=== PATIENT | male | born 1965 | race Caucasian/White ===

== ENCOUNTER 2020-11-26 07:10 | Day surgery (SDC) | payer OTHER, SELFPAY ==
[2020-11-22 15:19] VITALS: BMI 30.1
--- NOTE | 2020-11-25 09:28 | P.CONAN_ITS ---
Documented by User: Valencia Jones 11/25/20 09:29 HPI - Anesthesia Eval Consult details Narrative: 55yo M for Upper Endoscopy and Colonoscopy [facility] Past Medical History Medical History GERD (gastroesophageal reflux disease) Hyperlipidemia IBS (irritable bowel syndrome) Surgical History Surgical History Hx of cervical discectomy Hx of colonoscopy Social History Social History Advance Directives: No Advance Directives Information Provided: No Advance Directives on File: No Recently lost weight without trying: No Meds Allergies Allergy/AdvReac Type Severity Reaction Status Date / Time bee pollen [bee stings] Allergy Unknown Verified 11/22/20 15:13 Home Medications Medication Instructions Recorded Confirmed Last Taken Type cholecalciferol (vitamin D3) 25 mcg PO DAILY 11/22/20 11/22/20 Unknown History [Vitamin D3] coenzyme Q10 [CoQ-10] 200 mg PO DAILY 11/22/20 11/22/20 Unknown History dicyclomine 1 - 2 cap PO Q6H PRN 11/22/20 11/22/20 Unknown History famotidine 1 tab PO DAILY 11/22/20 11/22/20 Unknown History egzarqxatgot-uada-gwpwm acid 1 tab PO DAILY 11/22/20 11/22/20 Unknown History [Centrum] omeprazole 1 cap PO DAILY 11/22/20 11/22/20 Unknown History simvastatin 1 tab PO BEDTIME 11/22/20 11/22/20 Unknown History Exam Exam Date and Time: November 25, 2020 0928 Height,Weight and Vital Signs: Height 5 ft 8 in Weight 89.811 kg Assessment and Plan Assessment Anesthesia Assessment: Chart Reviewed Documented by User: Tiny Leyva 11/26/20 08:15 [facility] Past Medical History Medical History GERD (gastroesophageal reflux disease) Hyperlipidemia IBS (irritable bowel syndrome) Surgical History Surgical History Hx of cervical discectomy Hx of colonoscopy Social History Social History Advance Directives: No Advance Directives Information Provided: No Advance Directives on File: No Recently lost weight without trying: No Meds Allergies Allergy/AdvReac Type Severity Reaction Status Date / Time bee pollen [bee stings] Allergy Unknown Verified 11/22/20 15:13 Home Medications Medication Instructions Recorded Confirmed Last Taken Type cholecalciferol (vitamin D3) 25 mcg PO DAILY 11/22/20 11/22/20 Unknown History [Vitamin D3] coenzyme Q10 [CoQ-10] 200 mg PO DAILY 11/22/20 11/22/20 Unknown History dicyclomine 1 - 2 cap PO Q6H PRN 11/22/20 11/22/20 Unknown History famotidine 1 tab PO DAILY 11/22/20 11/22/20 Unknown History vmzzzurfivep-zgmy-tugug acid 1 tab PO DAILY 11/22/20 11/22/20 Unknown History [Centrum] omeprazole 1 cap PO DAILY 11/22/20 11/22/20 Unknown History simvastatin 1 tab PO BEDTIME 11/22/20 11/22/20 Unknown History Exam Airway Mallampati Class: III (Small mouth, puentes) TM Dist: >3cm Neck ROM: Full Loose/Missing/Broken Teeth: No Heart: RRR Lungs: CTA Assessment and Plan Assessment Anesthesia Assessment: Anesthesia Plan Discussed and Chart Reviewed Final Anesthetic Review NPO: Yes ASA Class: II Final Preanesthetic Review: Meds/Allgs Chart Reviewed, Consent Obtained/Reviewed and Anes Risks/Benef Reviewed Patient Risk: Low Procedure Risk: Intermediate Anesthetic Plan Anesthetic Plan: MAC: Disposition: Standard PACU
[2020-11-26 07:59] VITALS: BP 130/81; PULSE 70; RESP 16; TEMP 36.4; O2SAT 98
[2020-11-26] MEDS: Lactated Ringers 1,000 ML 50 ML IV (08:15)
[2020-11-26 09:50] VITALS: BP 114/77; PULSE 73; RESP 16; TEMP 36.1; O2SAT 98
--- NOTE | 2020-11-26 09:56 | PM.OP ---
Brief Operative Note Date of Service: 11/26/20 Pre-op diagnosis: GERD, Screening Post-op diagnosis: other (Gastritis, Duodenitis, Hiatal hernia, R/O Izaguirre's, R/O Colitis, Diverticulosis) Procedure: EGD with biopsies, Colonoscopy to the cecum and TI with biopsies Surgeon: Tim Oseguera Anesthesia: MAC Estimated blood loss (mL): 4.0 Pathology: other (A. Gastric antrum B. Esophagus 39-40cm C. Colon at 20cm D. Rectum) Condition: stable Disposition: PACU
[2020-11-26 10:05] VITALS: BP 116/82; PULSE 78; RESP 16; O2SAT 99
--- NOTE | 2020-11-26 10:22 | OP_ITS ---
SURGEON: Tim Oseguera MD INDICATIONS: The patient presents for evaluation of gastroesophageal reflux, personal history of tubular adenoma of the colon, colorectal cancer screening, and irregular bowel movements. Full consent has been obtained from him for this, including risks of bleeding and perforation. PREOPERATIVE DIAGNOSIS: POSTOPERATIVE DIAGNOSIS: PROCEDURE PERFORMED: Esophagogastroduodenoscopy with biopsies, and colonoscopy to the cecum and terminal ileum with biopsies. ESTIMATED BLOOD LOSS: COMPLICATIONS: ANESTHESIA: Monitored anesthesia care. ASSISTANTS: SPECIMENS: PREOPERATIVE DIAGNOSES: Gastroesophageal reflux, colorectal cancer screening, personal history of tubular adenoma of the colon, irregular bowel movements. POSTOPERATIVE DIAGNOSES: Gastroesophageal reflux, colorectal cancer screening, personal history of tubular adenoma of the colon, irregular bowel movements, hiatal hernia, gastritis, duodenitis, rule out colitis, diverticulosis, and internal hemorrhoids. DESCRIPTION OF PROCEDURE: The patient was placed in the left lateral decubitus position. The Olympus video gastroscope was passed in the posterior oropharynx and upper esophagus under direct vision. The scope was passed slowly into the distal esophagus. The gastroesophageal junction appeared at 40 cm. Extending from this to 39 cm, were short segments of possible Izaguirre's mucosa. There was no esophagitis nor any lesions. The scope entered into the stomach. There was a small hiatal hernia. The scope was advanced to the pylorus and the duodenum was cannulated to the descending portion. The duodenum including the bulb was carefully inspected. The duodenal bulb had evidence of erosions, but no ulceration nor mass. The scope was withdrawn back into the stomach. The gastric antrum also had areas of erosions, erythema, edema, and some small amount of coffee-grounds material. There was no ulceration nor mass. There was good peristalsis. The scope was retroflexed visualizing the proximal stomach carefully which appeared normal, without any sign of mass or ulceration. The scope was straightened. Biopsies were obtained from the gastric antrum. Scope was withdrawn back into the esophagus. Biopsies were obtained between 39 and 40 cm. Proximal to 39 cm, the esophageal mucosa appeared normal. The scope was withdrawn from the patient. He was turned around for colonoscopy. The digital rectal exam revealed no abnormalities. The Olympus video pediatric colonoscope was entered into the rectum and advanced easily to the cecum. Once in the cecum, I did identify normal-appearing cecal pouch with appendiceal orifice and a normal-appearing ileocecal valve. The terminal ileum was cannulated and appeared normal. The scope was withdrawn back in the colon. The entire cecum and ileocecal valve appeared normal. The scope was slowly withdrawn assessing all mucosal surfaces carefully. Preparation was excellent. I did not visualize any sign of polyps nor angiodysplasia. There was a mild amount of sigmoid diverticulosis. From the rectum to 20 cm, were some mucosal changes of possible mild colitis with some edema and erythema, but no erosions nor ulceration. Biopsies were obtained in the rectum and at 20 cm. In the rectum, scope was retroflexed visualizing some small internal hemorrhoids, but no other pathology. The rectal mucosa appeared normal. The scope was straightened out and withdrawn from the patient. He tolerated the procedure well and was returned to the recovery area in stable condition. IMPRESSION: 1. Small hiatal hernia, gastroesophageal reflux, rule out Izaguirre's esophagus. 2. Gastritis and duodenitis. 3. Rule out colitis. 4. Diverticulosis. 5. Internal hemorrhoids. PLAN: The results of the biopsies will be checked. I would recommend a repeat colonoscopy in 5 years. He has been given a prescription for omeprazole and I did advise him to begin this in regard to the upper GI findings. If Helicobacter pylori is present in the gastric biopsies, I would recommend treating that. He was advised to stay off all aspirin and NSAIDs long-term. We shall review the results of the colon biopsies and determine whether he needs any treatment for that if indeed there is evidence of colitis and his irregular bowel movements persist. MD KATIE Villalobos/ELIANE / [id number]
== END 2020-11-26 10:35 | disposition home or self-care (01) ==
PROVIDERS: PCP Internal Medicine; Visit Provider Internal Medicine
PROC: (CPT 45380; principal; 2020-11-26 08:20)
DX: Z12.11 Encounter for screening for malignant neoplasm of colon (principal); Z86.010 Personal history of colon polyps; K57.30 Diverticulosis of large intestine without perforation or abscess without bleeding; K21.9 Gastro-esophageal reflux disease without esophagitis; K29.60 Other gastritis without bleeding; K29.80 Duodenitis without bleeding; K44.9 Diaphragmatic hernia without obstruction or gangrene; K58.9 Irritable bowel syndrome, unspecified; E78.5 Hyperlipidemia, unspecified; K64.8 Other hemorrhoids
CPT/HCPCS: 45380; 43239; 88305; 88342

== ENCOUNTER 2022-03-28 13:57 | Emergency (ER) | payer OTHER, SELFPAY ==
--- NOTE | ~2022-03-28 | XR_ITS ---
EXAMINATION: XR CHEST CLINICAL INFORMATION: Chest tightness COMPARISON: Previous chest x-ray March 2017 TECHNIQUE: 2 views of the chest were obtained. FINDINGS: The cardiac and mediastinal contours are normal. The lungs are clear. There is no pleural effusion or pneumothorax. There are degenerative changes of the thoracic spine. There are postsurgical changes cervical spine. XR/XR chest 2V IMPRESSION: No evidence for acute disease in the chest.
[2022-03-28 14:20] VITALS: BP 146/92; PULSE 86; RESP 19; TEMP 36.6; O2SAT 100; BMI 29.2
--- NOTE | 2022-03-28 14:24 | ECG_ITS ---
Test Reason : anxiety Blood Pressure : / mmHG Vent. Rate : 085 BPM Atrial Rate : 085 BPM P-R Int : 156 ms QRS Dur : 088 ms QT Int : 364 ms P-R-T Axes : 057 -61 045 degrees QTc Int : 433 ms Normal sinus rhythm Left axis deviation Abnormal ECG When compared with ECG of 10-APR-2017 17:37, No significant change was found Referred By: Generic ED Physician Electronically Signed By:LEONORA BERRY MD
[2022-03-28 14:49] LABS: MANUAL DIFF FLAG NO
[2022-03-28 14:56] LABS: Basophils Percent Auto 0.2 % (0-2); Eosinophils Absolute Auto 0.1 X10*3/uL (0.0-0.4); Eosinophils Percent Auto 0.7 % (0-4); Hematocrit 41.5 % (42.0-52.0); Hemoglobin 14.6 g/dl (14.0-18.0); Imm Gran Abs Auto 0.03 X10*3/uL (0.00-0.03); Imm Gran Pct Auto 0.3 % (0.0-0.4); Lymphocytes Absolute Auto 1.9 X10*3/uL (1.2-4.9); Mean Corpuscular HGB Conc 35.2 g/dl (31.0-36.0); Mean Corpuscular Volume 85.2 fL (80.0-98.0); Mean Platelet Volume 9.3 fL (9.4-12.4); Monocytes Absolute Auto 0.8 X10*3/uL (0.1-1.2); Monocytes Percent Auto 9.6 % (2-11); Neutrophils Absolute Auto 5.8 x10*3/uL (2.0-8.3); Neutrophils Percent Auto 67.2 % (45-73); Platelet Count 242 X10*3/uL (160-400); Red Blood Count 4.87 X10*6/uL (4.60-5.80); Red Cell Distribution Width 13.3 % (11.0-16.0); White Blood Count 8.7 X10*3/uL (4.8-10.8)
[2022-03-28 15:17] LABS: Anion Gap 13 (12-20); Blood Urea Nitrogen 14 mg/dL (9-16); Carbon Dioxide 23 mmol/L (22-29); Chloride 109 mmol/L (96-108); Creatinine Clr Calc Pharmacy 112.2; Estimated Glomerular Filt Rate > 60; Glucose Random 102 mg/dL (60-115); Potassium 3.8 mmol/L (3.3-5.1); Sodium 141 mmol/L (135-145)
[2022-03-28 15:22] LABS: Troponin-I High Sensitivity < 3.5 ng/L (<3.5-35.0)
[2022-03-28 22:19] VITALS: BP 150/100; PULSE 75; RESP 17; O2SAT 100
--- NOTE | 2022-03-28 22:49 | ED_ITS ---
HPI - General Adult General Chief complaint: Anxiety Stated complaint: sob panic attack Time Seen by Provider: 03/28/22 22:48 Source: patient Mode of arrival: ambulatory Limitations: no limitations History of Present Illness HPI narrative: 56 year old male came in for evaluation of episodes of difficulty breathing. Patient being getting episodes of difficulty breathing which is intermittent mostly at nighttime while patient is sleeping patient grew up anxious and hungry for air, when it happened at nighttime patient is usually diaphoretic. Symptoms started 3 weeks ago, no triggering or aggravating factor, no relieving factor, symptoms is not associated with chest pain or lower extremity swelling, no orth opnea, no PND. No chest pain, no recent travel, no lower extremity swelling or pain. Patient also declined coughing or fever or chills, no sick contacts, no recent exposure to sickness. Related Data Home Medications Medication Instructions Recorded Confirmed cholecalciferol (vitamin D3) 25 25 mcg PO DAILY 11/22/20 11/22/20 mcg (1,000 unit) capsule (Vitamin D3) coenzyme Q10 100 mg capsule 200 mg PO DAILY 11/22/20 11/22/20 (CoQ-10) dicyclomine 10 mg capsule 1 - 2 cap PO Q6H PRN cramps 11/22/20 11/22/20 famotidine 40 mg tablet 1 tab PO DAILY 11/22/20 11/22/20 multivitamin-ferrous 1 tab PO DAILY 11/22/20 11/22/20 fumarate-folic acid 18 mg-400 mcg tablet (Centrum) omeprazole 40 mg capsule,delayed 1 cap PO DAILY 11/22/20 11/22/20 release simvastatin 20 mg tablet 1 tab PO BEDTIME 11/22/20 11/22/20 Allergies Allergy/AdvReac Type Severity Reaction Status Date / Time bee pollen [bee stings] Allergy Unknown Verified 11/22/20 15:13 Review of Systems Review of Systems: All other systems are reviewed and are negative Constitutional: Reports as per HPI and Reports no additional constitutional complaints Eyes: Reports as per HPI and Reports no additional eye complaints Reports system reviewed and no additional complaints, except as documented Cardiovascular: Reports as per HPI and Reports no additional cardiovascular complaints Respiratory: Reports as per HPI and Reports no additional respiratory complaints Gastrointestinal: Reports as per HPI and Reports no additional gastrointestinal complaints Genitourinary: Reports no additional female genitourinary complaints Musculoskeletal: Reports no additional musculoskeletal complaints Skin/Breast: Reports system reviewed and no additional complaints, except as docu Psychiatric: Reports no additional psychiatric complaints Endocrine: Reports no additional endocrine complaints Hematologic/Lymphatic: Reports no additional hematologic/lymphatic complaints Allergic/Immunologic: Reports no additional allergic/immunologic complaints Reports system reviewed and no additional complaints, except as documented and Reports Abnormal speech present [facility] Past Medical History Medical History GERD (gastroesophageal reflux disease) Hyperlipidemia IBS (irritable bowel syndrome) Surgical History Hx of cervical discectomy Hx of colonoscopy Social History Social History Advance Directives: No Advance Directives Information Provided: No Physical Exam ED Vital Signs: Vital Signs - 24 hr 03/28/22 14:20 03/28/22 22:19 Temperature 98 F Pulse Rate 86 75 Respiratory Rate 19 17 Blood Pressure 146/92 H 150/100 H Pulse Oximetry 100 100 Oxygen Delivery Method Room Air Room Air BMI result Body Mass Index 29.2 Vital signs have been reviewed as appeared to be correct. Blood pressure normal. Heart rate normal. Respiration rate normal. Temperature normal. Oxygen saturation normal. Appearance: Alert. Oriented X3. No acute distress. Head: Normal external exam. Normocephalic. Atraumatic. No Booker signs noted. No raccoon eyes noted Eyes: PERRLA. EOMI. Conjunctiva and sclera normal. Eyelids normal. ENT: TM's Normal. Pharynx normal. Uvula midline. Moist mucous membranes. No trismus noted. No drooling noted. No muffled voice noted. Neck: Normal inspection. Neck supple. FROM. No adenopathy. Thyroid Normal. No meningeal signs. No neck mass noted. CVS: Normal heart rate and rhythm. Heart sound normal. No murmurs noted. Pulses normal throughout. Respiratory: No respiratory distress. Painless inspiration. Breath sounds normal. No wheezes/rales/rhonchi noted. Chest nontender. No accessory muscle usage noted or decreased air movement noted. Abdomen: Soft and nontender. Bowel sounds normal in all 4 quadrants. No distention noted. No organomegaly noted. No visible injury noted. Back: No CVA tenderness. Full range of motion noted. Skin: Skin warm and dry. Normal skin color. Normal skin turgor. No rashes/lesions/lacerations noted. Extremities: No lower extremity edema. Extremities exhibit normal range of motion. Extremities nontender. Neuro: Oriented X 3. Cranial nerve exam: II-XII are grossly intact No motor deficit. No sensory deficit. Reflexes normal. Course Course Course Narrative: Assessment and plan. 56-year-old male came in with a sporadic symptoms of shortness of breath, patient has unremarkable chest x-ray, physical exam, labs are significant for COVID 19 infection positive. Patient is satting 100% with respiratory rate of 17. Medical Decision Making Lab Data Lab results reviewed: Yes I reviewed the patient's lab results. Result diagrams: 03/28/22 14:41 03/28/22 14:41 Labs: Lab Results 03/28/22 03/28/22 03/28/22 Range/Units 14:41 14:41 14:41 WBC 8.7 (4.8-10.8) X10*3/uL RBC 4.87 (4.60-5.80) X10*6/uL Hgb 14.6 (14.0-18.0) g/dl Hct 41.5 L (42.0-52.0) % MCV 85.2 (80.0-98.0) fL MCH 30.0 (27.0-33.0) pg MCHC 35.2 (31.0-36.0) g/dl RDW 13.3 (11.0-16.0) % Plt Count 242 (160-400) X10*3/uL MPV 9.3 L (9.4-12.4) fL Immature Gran % (Auto) 0.3 (0.0-0.4) % Neut % (Auto) 67.2 (45-73) % Lymph % (Auto) 22.0 (20-40) % [place] % (Auto) 9.6 (2-11) % Eos % (Auto) 0.7 (0-4) % Baso % (Auto) 0.2 (0-2) % Lymph # (Auto) 1.9 (1.2-4.9) X10*3/uL [place] # (Auto) 0.8 (0.1-1.2) X10*3/uL Eos # (Auto) 0.1 (0.0-0.4) X10*3/uL Baso # (Auto) 0.0 (0.0-0.2) X10*3/uL Abs Immat Gran (auto) 0.03 (0.00-0.03) X10*3/uL Absolute Neuts (auto) 5.8 (2.0-8.3) x10*3/uL Absolute Nucleated RBC 0.000 (0.0-0.012) X10*3/uL Nucleated RBC % (auto) 0.0 (0.0-0.2) /100WBC D-Dimer High Sensitivty NG/ML Sodium 141 (135-145) mmol/L Potassium 3.8 (3.3-5.1) mmol/L Chloride 109 H (96-108) mmol/L Carbon Dioxide 23 (22-29) mmol/L Anion Gap 13 (12-20) BUN 14 (9-16) mg/dL Creatinine 0.77 (0.5-1.4) mg/dL Estim Creat Clear Calc 112.2 Estimated GFR > 60 Random Glucose 102 (60-115) mg/dL Calcium 9.0 (8.4-10.2) mg/dL Troponin I High Sens < 3.5 (<3.5-35.0) ng/L B-Natriuretic Peptide (<100) pg/mL Influenza Type A (PCR) (Negative) Influenza Type B (PCR) (Negative) RSV RNA Qual (PCR) (Negative) SARS-CoV-2 RNA (RT-PCR) (Negative) 03/28/22 03/28/22 03/28/22 Range/Units 23:09 23:09 23:09 WBC (4.8-10.8) X10*3/uL RBC (4.60-5.80) X10*6/uL Hgb (14.0-18.0) g/dl Hct (42.0-52.0) % MCV (80.0-98.0) fL MCH (27.0-33.0) pg MCHC (31.0-36.0) g/dl RDW (11.0-16.0) % Plt Count (160-400) X10*3/uL MPV (9.4-12.4) fL Immature Gran % (Auto) (0.0-0.4) % Neut % (Auto) (45-73) % Lymph % (Auto) (20-40) % [place] % (Auto) (2-11) % Eos % (Auto) (0-4) % Baso % (Auto) (0-2) % Lymph # (Auto) (1.2-4.9) X10*3/uL [place] # (Auto) (0.1-1.2) X10*3/uL Eos # (Auto) (0.0-0.4) X10*3/uL Baso # (Auto) (0.0-0.2) X10*3/uL Abs Immat Gran (auto) (0.00-0.03) X10*3/uL Absolute Neuts (auto) (2.0-8.3) x10*3/uL Absolute Nucleated RBC (0.0-0.012) X10*3/uL Nucleated RBC % (auto) (0.0-0.2) /100WBC D-Dimer High Sensitivty < 150 NG/ML Sodium (135-145) mmol/L Potassium (3.3-5.1) mmol/L Chloride (96-108) mmol/L Carbon Dioxide (22-29) mmol/L Anion Gap (12-20) BUN (9-16) mg/dL Creatinine (0.5-1.4) mg/dL Estim Creat Clear Calc Estimated GFR Random Glucose (60-115) mg/dL Calcium (8.4-10.2) mg/dL Troponin I High Sens < 3.5 (<3.5-35.0) ng/L B-Natriuretic Peptide < 10 (<100) pg/mL Influenza Type A (PCR) NEGATIVE (Negative) Influenza Type B (PCR) NEGATIVE (Negative) RSV RNA Qual (PCR) NEGATIVE (Negative) SARS-CoV-2 RNA (RT-PCR) POSITIVE A (Negative) Imaging Data Chest x-ray: Attestation: I personally reviewed and interpreted this imaging study as follows: Radiologist's impression: No acute pathology. ECG Data Attestation: I personally reviewed and interpreted this ECG as follows: Interpretation: Normal sinus rhythm at 85 beats per minutes, left axis deviation, normal interva ls, no ST-T changes. Discharge Plan Discharge Clinical Impression: COVID-19 Patient Disposition: Home, Self-Care Instructions: COVID-19 (Coronavirus Disease 2019) (ED) Prescriptions: No Action famotidine 40 mg tablet 1 tab PO DAILY omeprazole 40 mg capsule,delayed release(DR/EC) 1 cap PO DAILY simvastatin 20 mg tablet 1 tab PO BEDTIME dicyclomine 10 mg capsule 1 - 2 cap PO Q6H PRN (Reason: cramps) cholecalciferol (vitamin D3) [Vitamin D3] 25 mcg (1,000 unit) Capsule 25 mcg PO DAILY coenzyme Q10 [CoQ-10] 100 mg Capsule 200 mg PO DAILY Centrum 18-400 mg-mcg Tablet 1 tab PO DAILY Referrals: Nirmal Zafar MD [Primary Care Provider] - Stand Alone Forms: Work/School Release
[2022-03-28 23:27] LABS: D Dimer High Sensitivity < 150 NG/ML
[2022-03-28 23:41] LABS: B Type Natriuretic Peptide < 10 pg/mL (<100); Troponin-I High Sensitivity < 3.5 ng/L (<3.5-35.0)
[2022-03-28 23:56] LABS: Influenza A PCR NEGATIVE (Negative); Influenza B PCR NEGATIVE (Negative); Resp Syncy Virus RNA Qual PCR NEGATIVE (Negative); SARS COV2 PCR INHOUSE POSITIVE (Negative)
[2022-03-29 00:41] VITALS: BP 141/88; PULSE 59; RESP 16; O2SAT 97
--- NOTE | 2022-03-29 00:41 | PC.NURSE ---
pt a&o, no sob or chest pain. Iv removed. Reviewed discharge instructions given to pt. pt verbalized understanding.
== END 2022-03-29 00:42 | disposition home or self-care (01) ==
PROVIDERS: Emergency Provider Emergency Medicine; PCP Internal Medicine
DX: U07.1 COVID-19 (principal); F41.1 Generalized anxiety disorder; R06.02 Shortness of breath; Z79.899 Other long term (current) drug therapy
CPT/HCPCS: 0241U; 36415; 71046; 80048; 83880; 84484; 85025; 85379; 93005; 99283; 99284

== ENCOUNTER → 2022-05-01 07:10 | Outpatient (REF) | payer OTHER, SELFPAY ==
--- NOTE | 2022-05-01 | PFT_ITS ---
FLOWS: FEV1 83% of predicted at 2.73 L. FVC 80% of predicted at 3.45 L. FEV1 to FVC ratio of 0.79. No bronchodilator response except in small to medium airways. LUNG VOLUMES: Total lung capacity 85% of predicted at 5.45 L. Residual volume 101% of predicted at 2.09 L. Slow vital capacity 77% of predicted at 3.36 L. Expiratory reserve volume 66% of predicted at 0.82 L. Diffusion capacity is normal. IMPRESSION: No obstructive or restrictive ventilatory defect. No bronchodilator response except in small to medium airways. Aaron Jones MD AP/MODL / [id number]
--- NOTE | 2022-05-01 07:34 | CA_ITS ---
Transthoracic Echocardiogram Patient (Last, First, Middle): Sahil Turner R Gender: Male Date of : 1965 Age: 56 Procedure Date: 05/01/2022 Procedure Type: Transthoracic Echocardiogram Location: OP Height: 172.72 cm Weight: 88.45 kg BSA: 2.02 m2 Heart Rate: bpm BP: 122 / 83 mmHg Complex Care Nurse: TO Referring MD: Nirmal Zafar MD Symptoms: I10 HTN R06.02 SOB Study Quality: Adequate ECG Rhythm: Sinus Conclusions: - The left ventricular systolic function is normal. The calculated ejection fraction is 65% by biplane method. - No obvious valvular pathology seen on this study. Findings Left Ventricle Normal left ventricular cavity size. There is mildly increased left ventricular wall thickness. The left ventricular systolic function is normal. The calculated ejection fraction is 65% by biplane method. There is no evidence of regional wall motion abnormalities. Diastolic function is normal for age. LV peak GLS -18%. Right Ventricle Normal right ventricular cavity size and systolic function. Atria Both atria are normal in size. Aortic Valve There is a normal trileaflet aortic valve. There is no aortic valve stenosis. There is no aortic valve regurgitation. Mitral Valve The mitral valve appears normal. There is trace mitral valve regurgitation. There is no mitral valve stenosis. Pulmonic Valve The pulmonic valve is likely normal. Tricuspid Valve Normal tricuspid valve structure. There is trace tricuspid valve regurgitation. The pulmonary artery systolic pressure is normal. Great Vessels The asc aorta is normal in size. Venous The inferior vena cava is normal in size and collapses greater than 50% with inspiration. Pericardium/Pleural There is no evidence of pericardial effusion. Prior Study Comparison No prior study available for comparison. Recommendations, Care & Conclusions No obvious valvular pathology seen on this study. Measurements 2D Linear Measurements IVSd: 1.10 0.6-0.9/0.6-1.0 cm LVIDd: 4.40 3.9-5.3/4.2-5.9 cm LVIDd Index: 2.18 2.4-3.2/2.2-3.1 cm/m2 LVIDs: 3.24 2.0-3.6 cm LVPWd: 1.10 0.7-1.1 cm LA Diam: 3.20 2.7-3.8/3.0-4.0 cm LAIDs Index: 1.58 1.5-2.3 cm/m2 LV Mass: 210.40 67-162/88-224 g LV Mass Index: 104.16 43-95/49-115 g/m2 LVOT Diam: 2.20 3.0+(-)1.3 cm 2D Systolic Function EF 4C: 66.90 >55% EF 2C: 60.90 >55% EF BiP: 65.20 >55% Mitral Valve MV Pk E: 0.81 MV PK A: 0.73 MV Decel Time: 212.00 E/A: 1.10 E'Lateral: 11.10 E'Medial: 7.94 E/E' Med: 10.30 E/E' Lat: 7.30 PHT: 62.00 MVA PHT: 3.55 Decel [place]: 3.85 Aortic Valve AoV Pk Guy: 1.25 AoV Mn Guy: 0.78 AoV VTI: 0.25 AoV Pk Grad: 6.00 Aov Mn Grad: 3.00 SHADI Cont.VTI: 3.50 LVOT LVOT Pk Guy: 1.16 LVOT Mn Guy: 0.72 LVOT VTI: 0.23 LVOT Pk Grad: 5.00 LVOT Mn Grad: 2.00 LVOT Diam: 2.20 LVOT Area: 3.80 Diastolic Function MV Pk E: 0.81 MV Pk A: 0.73 E/A: 1.10 E'Medial: 7.94 E/E' Med: 10.30 E' Laterial: 11.10 E/E' Lat: 7.30 Right Ventricle TAPSE (mm): 26.90 TVS' Guy: 12.10 Tricuspid Valve TR Pk Guy: 2.44 TR Pk Grad: 24.00 RA Press: 3.00 RVSP: 27.00 Great Vessels Aorta Sinus of Valsalva: 3.49 2.0-3.[address] [place]: 2.41 1.7-3.4 cm Ao Asc: 3.50 2.1-3.4 cm Updated in Other Vendor System with Status of Final Jonathan Perry MD electronically signed on 05/02/2022 9:14:21 AM with status of Final
== END ==
LOC: HO.CARD 07:10
PROVIDERS: PCP Internal Medicine; Visit Provider Internal Medicine
DX: R06.00 Dyspnea, unspecified (principal); R06.02 Shortness of breath; I10 Essential (primary) hypertension
CPT/HCPCS: 93306; 93356; 94060; 94727; 94729